=== PATIENT | male | born 1975 | race Caucasian/White ===

== ENCOUNTER 2020-05-13 09:16 | Emergency (ER) | payer OTHER ==
[~2020-05-13] VITALS: Ht 175.3 cm; Wt 102.1 kg
[2020-05-13 10:30] VITALS: BP 168/105
== END 2020-05-13 10:33 | disposition home or self-care (01) ==
LOC: M.ERS 09:16
DX: R05 Cough (principal); Z20.828 Contact with and (suspected) exposure to other viral communicable diseases; I10 Essential (primary) hypertension